=== PATIENT | female | born 1985 | race Caucasian/White ===

== ENCOUNTER 2019-09-03 21:44 | Emergency (ER) | payer BC ==
[~2019-09-03] VITALS: Ht 175.3 cm; Wt 79.5 kg
[~2019-09-03 21:44] MED LIST: ACHYD1T PO; AMOX500C2 PO; DCS100C PO; IBP800T PO; ONDA8TAB9 PO; PNV1CAPS13 PO
--- NOTE | 2019-09-03 22:05 | ED Respiratory ---
General Chief Complaint: Respiratory Problems Stated Complaint: COUGHING,SOB History of Present Illness Date Seen by Provider: Sep 03, 2019 Time Seen by Provider: 21:50 Initial Comments 33-year-old female presents after experiencing an episode where she describes aspirating stomach acid. She has a history of GERD and at 2099 she was almost asleep, she felt GI reflux and then inhaled. Timing/Duration: just prior to arrival Prior Episodes/Possible Cause: no prior episodes Associated Symptoms: denies symptoms; No chest pain/soreness; cough; No dizziness, No earache, No facial pain, No fever/chills, No headache, No lightheadedness, No muscle aches, No nasal congestion, No nasal drainage, No shortness of breath, No sinus infection; sore throat; No wheezing, No other Allergies and Home Medications Allergies Coded Allergies: No Known Drug Allergies (Unverified , 01/31/12) Home Medications Docusate Sodium 100 Mg Capsule, 100 MG PO BID, (Reported) Hydrocodone Bit/Acetaminophen 1 Tab Tablet, 1-2 TAB PO q3h PRN, (Reported) Ibuprofen 800 Mg Tab, 800 MG PO Q6H PRN, (Reported) Pnv Comb.no58/Iron Bisgly/Fa 1 Each Capsule, 1 EACH PO DAILY, (Reported) Patient Home Medication List Home Medication List Reviewed: Yes Review of Systems Review of Systems Constitutional: no symptoms reported, see HPI Respiratory: see HPI, cough, short of breath All Other Systems Reviewed Negative Unless Noted: Yes Past Xegtulo-Ajzkwl-Diktob Hx Past Med/Social Hx: Reviewed Nursing Past Med/Soc Hx Patient Social History Recent Foreign Travel: No Contact w/Someone Who Travel: No Immunizations Up To Date Tetanus Booster (TDap): Unknown Date of Influenza Vaccine: Jun 06, 2013 Past Medical History Reproductive Disorders: No Sexually Transmitted Disease: No Family Medical History No Pertinent Family Hx Physical Exam Vital Signs - First Documented 09/03/19 21:52 Temp 36.6 Pulse 81 Resp 18 B/P (MAP) 124/73 (90) Pulse Ox 98 O2 Delivery Room Air Capillary Refill : Height: '" Weight: 298lbs. oz. 135.747670xs; BMI Method: General Appearance: WD/WN, no apparent distress HEENT: PERRL/EOMI, normal ENT inspection, TMs normal, pharynx normal Neck: non-tender, full range of motion, supple, normal inspection Respiratory: chest non-tender, lungs clear, normal breath sounds Cardiovascular: normal peripheral pulses, regular rate, rhythm Gastrointestinal: normal bowel sounds, non tender, soft Neurologic/Psychiatric: no motor/sensory deficits, alert, normal mood/affect, oriented x 3 Skin: normal color, warm/dry Progress/Results/Core Measures Suspected Sepsis SIRS Temperature: Pulse: Respiratory Rate: Blood Pressure / Mean: Results/Orders My Orders Orders - SUPRIYA KAPOOR Chest Pa/Lat (2 View) (09/03/19 22:01) Lidocaine 2% Viscous 15 Ml (Xylocaine Vi (09/03/19 22:15) Antacid Suspension (Mylanta Suspension (09/03/19 22:15) Rx-Albuterol Inhaler (Rx-Proair) (09/03/19 22:42) Dexamethasone Injection (Decadron Inject (09/03/19 22:45) Medications Given in ED Current Medications Medications Dose Ordered Sig/Chata Route Start Time Stop Time Status Last Admin Dose Admin Al Hydrox/Mg Hydrox/Simethicone 30 ml ONCE ONCE PO 09/03/19 22:15 09/03/19 22:16 DC 09/03/19 22:15 30 ML Lidocaine HCl 15 ml ONCE ONCE PO 09/03/19 22:15 09/03/19 22:16 DC 09/03/19 22:16 15 ML Vital Signs/I&O 09/03/19 21:52 Temp 36.6 Pulse 81 Resp 18 B/P (MAP) 124/73 (90) Pulse Ox 98 O2 Delivery Room Air Capillary Refill : Progress Note : Time: 21:50 Progress Note Patient seen and evaluated, will obtain chest x-ray. GI cocktail. 2220 patient does report some improvement after the GI cocktail. Awaiting chest x-ray. 0 chest x-ray showed no acute findings. Patient reports continued improvement. We'll discharge to home, return precautions reviewed all questions answered. Diagnostic Imaging Diagonstic Imaging: Xray Plain Films/CT/US/NM/MRI: chest Comments No acute abnormalities noted. Will be over read by radiology. Departure Impression Primary Impression: GERD (gastroesophageal reflux disease) Qualified Codes: K21.9 - Gastro-esophageal reflux disease without esophagitis Additional Impression: Aspiration into airway Qualified Codes: T17.908A - Unspecified foreign body in respiratory tract, part unspecified causing other injury, initial encounter Disposition: 01 HOME, SELF-CARE Condition: Improved Departure-Patient Inst. Decision time for Depature: 22:40 Referrals: MCKAYLA SHRESTHA (PCP) Primary Care Physician Patient Instructions: Acid Reflux (Gastroesophageal Reflux Disease), Adult (DC), Aspiration Pneumonia (DC) Add. Discharge Instructions: Increase water intake as tolerated. Use the inhaler 2 puffs every 4 hours as needed, wait 5 minutes between puffs Take [id number]-[id number]-vzaeyep Pepcid and Prilosec as directed on the box for 7 days. Follow-up with your primary care provider if symptoms are not improving, fever greater than 101, or new problems. All discharge instructions reviewed with patient and/or family. Voiced understanding. SUPRIYA KAPOOR Sep 03, 2019 22:05
[2019-09-03] MEDS ORDERED: ANTACID SUSP 30 ML UDC (MYLANTA) PO ONE (22:15)
[2019-09-03] MEDS ORDERED: LIDOCAINE 2% VISCOUS 15 ML UDC PO ONE (22:15)
[2019-09-03] MEDS ORDERED: RX-ALBUTEROL INHALER (PROAIR) 8.5 GM IH STA (22:42)
[2019-09-03] MEDS ORDERED: DEXAMETHASONE 10 MG/ML (DECADRON) 1 ML VIAL IM ONE (22:45)
[2019-09-03 23:00] VITALS: BP 124/73
--- NOTE | 2019-09-04 06:52 | Diagnostic Imaging Report ---
EXAMINATION: CHEST (PA AND LATERAL) CLINICAL INDICATION: 33-year-old female, shortness of breath. COMPARISON: None. FINDINGS: Heart size and mediastinal contours are unremarkable. There is no identified pneumothorax. There is no pleural effusion. There is airspace consolidation in the right mid to lower lung zone best seen on the frontal view. This is not well localized on the lateral view. IMPRESSION: Airspace consolidation in the right middle lobe and/or right lower lobe concerning for pneumonia or other alveolar consolidative process. Recommend correlation clinically and ensure followup resolution. Dictated by: Dictated on workstation # [id number]
== END 2019-09-03 22:59 | disposition home or self-care (01) ==
LOC: EDUNIT# 21:44 → ER 21:47
DX: K21.9 Gastro-esophageal reflux disease without esophagitis (principal); T17.918A Gastric contents in respiratory tract, part unspecified causing other injury, initial encounter
CPT/HCPCS: 71046; 96372; 99284